=== PATIENT | male | born 1970 | race Caucasian/White ===

== ENCOUNTER 2018-01-03 10:03 | Emergency (ER) | payer BC ==
[2018-01-03] MEDS ORDERED: Sodium Chloride 0.9% 1000 ML 1,000 ML ONE (11:13)
[2018-01-03] MEDS ORDERED: Sodium Chloride 0.9% 1000 ML 1,000 ML IV SCH (11:15)
--- NOTE | 2018-01-03 11:18 | ERPHSYRPT ---
- History of Present Illness Time Seen by Provider: 01/03/18 10:20 Historian: patient Exam Limitations: clinical condition Patient Subjective Stated Complaint: pt to er c/o bradycardia, pt has hx of mitral valve but no other cardiac history he is aware of, has also c/o abdominal pain right side radiating to flank, denies urinary symptoms, this am awoke with numbness to right side of his face, sees Halle Chavez GRAPHICS MANAGER for issues, has CT scheduled tomorrow but felt it could nto wait Triage Nursing Assessment: pt to er per self, ambulates to room with no noted difficulties, denies chest pain, denies palpitations, has new onset facial numbness this am, denies visual changes, Physician History: PATIENT HAS A HISTORY OF IRREGULAR HEART RATE, COMPLAINS OF LEFT SIDED ABDOMINAL PAIN X 2 MONTHS WITH OCCASIONAL CONSTIPATION, DIARRHEA AND RADIATION OF PAIN TO LEFT TESTICLE. REFERRED TO EMERGENCY ROOM FROM LAB DUE TO LOW PULSE RATE. PATIENT DENIES CHEST PAIN, DYSPNEA, PALPITATIONS, DIZZINESS, FEVER , NAUSEA OR EMESIS. Timing/Duration: other (MONTHS) Activities at Onset: none Quality: cramping, sharpness Abdominal Pain Onset Location: LLQ Pain Radiation: flank (AND LEFT TESTICLE) Severity of Pain-Max: moderate Severity of Pain-Current: moderate Modifying Factors: Improves With: nothing Associated Symptoms: nausea, testicular pain, other (CONSTIPATION AND DIARRHEA) Previous symptoms: same symptoms as today Allergies/Adverse Reactions: No Known Drug Allergies Allergy (Unverified 01/03/18 10:22) Hx Tetanus, Diphtheria Vaccination/Date Given: No Hx Influenza Vaccination/Date Given: No - Review of Systems Constitutional: No Fever, No Chills Eyes: No Symptoms Ears, Nose, & Throat: No Symptoms Respiratory: No Symptoms, No Cough, No Dyspnea Cardiac: No Symptoms, No Chest Pain, No Edema, No Syncope Abdominal/Gastrointestinal: Abdominal Pain, No Nausea, No Vomiting, No Diarrhea Genitourinary Symptoms: Other (RADIATION OF PAIN TO TESTICLE), No Dysuria Musculoskeletal: No Back Pain, No Neck Pain Skin: No Rash Neurological: No Dizziness, No Focal Weakness, No Sensory Changes Psychological: No Symptoms Endocrine: No Symptoms All Other Systems: Reviewed and Negative - Past Medical History Pertinent Past Medical History: Yes Cardiac History: Other - Past Surgical History Past Surgical History: No - Social History Smoking Status: Never smoker Exposure to second hand smoke: No Drug Use: none Patient Lives Alone: No - Nursing Vital Signs Nursing Vital Signs: Initial Vital Signs Pulse Rate 94 H 01/03/18 10:12 Respiratory Rate 20 01/03/18 10:12 Blood Pressure 150/103 01/03/18 10:12 O2 Sat by Pulse Oximetry 98 01/03/18 10:12 Pain Scale Pain Intensity 2 - Physical Exam General Appearance: no apparent distress, alert Eye Exam: PERRL/EOMI, eyes nml inspection Ears, Nose, Throat Exam: normal ENT inspection, pharynx normal, moist mucous membranes Neck Exam: normal inspection, non-tender, supple, full range of motion Respiratory Exam: normal breath sounds, lungs clear, No respiratory distress Cardiovascular Exam: regular rate/rhythm, normal heart sounds Gastrointestinal/Abdomen Exam: soft, normal bowel sounds, tenderness (LLQ TENDERNESS, NO GUARDING OR REBOUND TENDERNESS), No mass Male Genitalia Exam: normal genitalia Back Exam: normal inspection, normal range of motion, No CVA tenderness, No vertebral tenderness Extremity Exam: normal inspection, normal range of motion, pelvis stable Neurologic Exam: alert, oriented x 3, cooperative, normal mood/affect, nml cerebellar function, sensation nml, No motor deficits Skin Exam: normal color, warm, dry SpO2 Interpretation: normal SpO2: 98 Oxygen Delivery: Room Air - Course EKG Interpreted by Me: RATE, Sinus Rhythm, NORMAL AXIS, Other (OCCASIONAL PVC) - Radiology Exams Chest X-ray Interpretation: Discussed w/ radiologist, No Infiltrates - CT Exams Abdomen/Pelvis CT Interpretation: Discussed w/radiologist (NO ACUTE PROCESS IS SEEN, NO BOWEL OBSTRUCTION, FREE AIR, BOWEL WALL THICKENING, NO RENAL/URETERAL CALCULLI. HYDRONEPHROSIS OR EVIDENCE OF APPENDICITIS) Ordered Tests: Active Orders 24 hr Category Date Time Status Clean Catch Urine Specimen STAT Care 01/03/18 11:09 Active IV Insertion STAT Care 01/03/18 11:09 Active ABDOMEN AND PELVIS W CONTRAST [CT] Stat Exams 01/03/18 11:09 Completed CHEST 1 VIEW (PORTABLE) Stat Exams 01/03/18 11:09 Completed AMYLASE Stat Lab 01/03/18 11:10 Completed CBC W DIFF Stat Lab 01/03/18 11:10 Completed CMP Stat Lab 01/03/18 11:10 Completed LIPASE Stat Lab 01/03/18 11:10 Completed TROPONIN Q3H Lab 01/03/18 11:10 Completed TROPONIN Q3H Lab 01/03/18 14:15 Ordered TROPONIN Q3H Lab 01/03/18 17:15 Ordered TROPONIN Q3H Lab 01/03/18 20:15 Ordered TROPONIN Q3H Lab 01/03/18 23:15 Ordered UA W/RFX UR CULTURE Stat Lab 01/03/18 12:30 Completed Medication Summary Generic Name Dose Route Start Last Admin Trade Name Freq PRN Reason Stop Dose Admin Sodium Chloride 1,000 mls @ 500 mls/hr 01/03/18 11:15 01/03/18 11:16 Sodium Chloride 0.9% 1000 Ml IV 02/02/18 11:14 500 mls/hr .Q2H RICHARD Administration Lab/Rad Data: Laboratory Result Diagrams 01/03/18 11:10 01/03/18 11:10 Laboratory Results 01/03/18 01/03/18 01/03/18 Range/Units 12:30 11:10 11:10 WBC (4.0-10.5) K/mm3 RBC (4.1-5.6) M/mm3 Hgb (12.5-18.0) gm/dl Hct (42-50) % MCV (78-100) fl MCH (26-32) pg MCHC (32-36) g/dl RDW (11.5-14.0) % Plt Count (150-450) K/mm3 MPV (6-9.5) fl Gran % (36.0-66.0) % Eos # (Auto) (0-0.5) Absolute Lymphs (auto) (1.0-4.6) Absolute Monos (auto) (0.0-1.3) Lymphocytes % (24.0-44.0) % Monocytes % (0.0-12.0) % Eosinophils % (0.00-5.0) % Basophils % (0.0-0.4) % Absolute Granulocytes (1.4-6.9) Basophils # (0-0.4) Sodium 139 (137-145) mmol/L Potassium 4.1 (3.5-5.1) mmol/L Chloride 104 (98-107) mmol/L Carbon Dioxide 24 (22-30) mmol/L Anion Gap 14.9 (5-15) MEQ/L BUN 9 (9-20) mg/dL Creatinine 0.85 (0.66-1.25) mg/dL Estimated GFR > 60.0 ML/MIN Glucose 110 H (74-106) mg/dL Calcium 9.5 (8.4-10.2) mg/dL Total Bilirubin 0.70 (0.2-1.3) mg/dL AST 28 (17-59) U/L ALT 25 (0-50) U/L Alkaline Phosphatase 86 (38-126) U/L Troponin I < 0.012 (0.000-0.034) ng/mL Serum Total Protein 8.1 (6.3-8.2) g/dL Albumin 4.9 (3.5-5.0) g/dL Amylase 62 (30-110) U/L Lipase 74 (23-300) U/L Ur Collection Type CLEAN CATCH Urine Color COLORLESS (YELLOW) Urine Appearance CLEAR (CLEAR) Urine pH 5.0 (5-6) Ur Specific [place] 1.005 (1.005-1.025) Urine Protein NEGATIVE (Negative) Urine Ketones NEGATIVE (NEGATIVE) Urine Blood NEGATIVE (0-5) Fidencio/ul Urine Nitrite NEGATIVE (NEGATIVE) Urine Bilirubin NEGATIVE (NEGATIVE) Urine Urobilinogen NORMAL (0-1) mg/dL Ur Leukocyte Esterase NEGATIVE (NEGATIVE) Urine Culture Reflexed NO (NO) Urine Glucose NEGATIVE (NEGATIVE) mg/dL Specimen Received 01-03-18 1230 01/03/18 Range/Units 11:10 WBC 4.7 (4.0-10.5) K/mm3 RBC 5.16 (4.1-5.6) M/mm3 Hgb 16.1 (12.5-18.0) gm/dl Hct 47.0 (42-50) % MCV 91.1 (78-100) fl MCH 31.2 (26-32) pg MCHC 34.3 (32-36) g/dl RDW 13.0 (11.5-14.0) % Plt Count 241 (150-450) K/mm3 MPV 11.2 H (6-9.5) fl Gran % 56.3 (36.0-66.0) % Eos # (Auto) 0.18 (0-0.5) Absolute Lymphs (auto) 1.39 (1.0-4.6) Absolute Monos (auto) 0.45 (0.0-1.3) Lymphocytes % 29.7 (24.0-44.0) % Monocytes % 9.6 (0.0-12.0) % Eosinophils % 3.8 (0.00-5.0) % Basophils % 0.6 (0.0-0.4) % Absolute Granulocytes 2.63 (1.4-6.9) Basophils # 0.03 (0-0.4) Sodium (137-145) mmol/L Potassium (3.5-5.1) mmol/L Chloride (98-107) mmol/L Carbon Dioxide (22-30) mmol/L Anion Gap (5-15) MEQ/L BUN (9-20) mg/dL Creatinine (0.66-1.25) mg/dL Estimated GFR ML/MIN Glucose (74-106) mg/dL Calcium (8.4-10.2) mg/dL Total Bilirubin (0.2-1.3) mg/dL AST (17-59) U/L ALT (0-50) U/L Alkaline Phosphatase (38-126) U/L Troponin I (0.000-0.034) ng/mL Serum Total Protein (6.3-8.2) g/dL Albumin (3.5-5.0) g/dL Amylase (30-110) U/L Lipase (23-300) U/L Ur Collection Type Urine Color (YELLOW) Urine Appearance (CLEAR) Urine pH (5-6) Ur Specific [place] (1.005-1.025) Urine Protein (Negative) Urine Ketones (NEGATIVE) Urine Blood (0-5) Fidencio/ul Urine Nitrite (NEGATIVE) Urine Bilirubin (NEGATIVE) Urine Urobilinogen (0-1) mg/dL Ur Leukocyte Esterase (NEGATIVE) Urine Culture Reflexed (NO) Urine Glucose (NEGATIVE) mg/dL Specimen Received - Progress Progress: unchanged Progress Note: 01/03/18 12:10 IV NORMAL SALINE 500ML/HR PATIENT REFUSED ANALGESICS, ALL LAB TESTS REVIEWED AND ARE NORMAL , ABDOMINAL PELVIC CT WITH INTRAVENOUS CONTRAST NEGATIVE 01/03/18 13:42 Counseled pt/family regarding: lab results, diagnosis, need for follow-up, rad results - Departure Time of Disposition: 13:58 Departure Disposition: Home Clinical Impression: CHRONIC ABDOMINAL PAIN, Arrhythmia Condition: Stable Critical Care Time: No Referrals: HALLE CHAVEZ [Primary Care Provider] - Additional Instructions: CONSULT YOUR PRIMARY CARE PROVIDER FOR FOLLOWUP, REVIEW OF EMERGENCY ROOM VISIT , LABS AND CT SCAN. CONSULT YOUR [employer]OD [employer]ODUCTS SALES REPRESENTATIVE FOR RE-EVALUATION OF ARRHYTHMIA.
[2018-01-03 11:44] LABS: BASOPHIL % 0.6 % (0.0-0.4); Basophil (Absolute #) 0.03 (0-0.4); Eosinophil % 3.8 % (0.00-5.0); Eosinophil (Absolute #) 0.18 (0-0.5); Granulocyte Absolute (ANC) 2.63 (1.4-6.9); Granulocytes % 56.3 % (36.0-66.0); Hemoglobin 16.1 gm/dl (12.5-18.0); Lymphocyte (Absolute #) 1.39 (1.0-4.6); Lymphocytes % 29.7 % (24.0-44.0); Mean Cell Volume 91.1 fl (78-100); Mean Corpuscular Hemoglobin 31.2 pg (26-32); Mean Corpuscular Hgb Concent. 34.3 g/dl (32-36); Mean Platelet Volume 11.2 fl (6-9.5); Monocyte (Absolute #) 0.45 (0.0-1.3); Monocytes % 9.6 % (0.0-12.0); Platelet Count 241 K/mm3 (150-450); Red Blood Count 5.16 M/mm3 (4.1-5.6); White Blood Count 4.7 K/mm3 (4.0-10.5)
[2018-01-03 11:50] LABS: ALBUMIN 4.9 g/dL (3.5-5.0); ALKALINE PHOSPHATASE 86 U/L (38-126); AMYLASE 62 U/L (30-110); ANION GAP 14.9 MEQ/L (5-15); BLOOD UREA NITROGEN 9 mg/dL (9-20); CHLORIDE 104 mmol/L (98-107); Calcium 9.5 mg/dL (8.4-10.2); Carbon Dioxide 24 mmol/L (22-30); Creatinine 1 0.85 mg/dL (0.66-1.25); Glucose 110 mg/dL (74-106); LIPASE 74 U/L (23-300); Potassium 4.1 mmol/L (3.5-5.1); SGOT/AST 28 U/L (17-59); SGPT/ALT 25 U/L (0-50); SODIUM 139 mmol/L (137-145); Total Protein 8.1 g/dL (6.3-8.2)
--- NOTE | 2018-01-03 12:00 | XRAY ---
Exam: AP upright portable chest film from 01/03/2018. Comparison: None. Indication: Dyspnea and dizziness. Findings: The transverse heart size appears normal. The gloria and mediastinal structures appear unremarkable. There is minimal elevation of the right hemidiaphragm which may be due to eventration. No air space infiltrates, vascular congestion, pneumothorax, or pleural fluid is seen. No acute osseous process is seen. EKG leads are noted in place. Impression: 1. No acute cardiopulmonary disease is seen. Incidental note of minimal elevation/eventration of the right hemidiaphragm is seen.
--- NOTE | 2018-01-03 12:35 | XRAY ---
Exam: CT of the abdomen and pelvis with IV contrast from 01/03/2018. CTDI: 21.37 Comparison: Gallbladder ultrasound from 12/28/2017. Indication: 47-year-old male with left lower abdominal/pelvic pain for 2-3 months/left flank pain;. Technique: Post-IV contrast axial images were obtained through the abdomen and pelvis during and following automated injection of 80 ML's of Isovue 370 contrast material. No oral contrast was given. Reconstructed coronal and sagittal images were created and reviewed. Also, some delay axial images were obtained through the kidneys, ureters, and urinary bladder. Findings: The lung bases appear essentially clear, except for some minimal curvilinear scarring/atelectasis at the anterior lateral left lung base. No posterior pleural fluid is seen. The heart size is normal. There is mild focal eventration of the anterior and midportion of the right hemidiaphragm. The liver and spleen appear unremarkable. The gallbladder is partially distended and reveals no dense calcifications within it. No biliary duct distention is seen. The pancreas and adrenal glands appear unremarkable. The kidneys are of normal size and function well on the delay images. No solid renal mass, cyst, hydronephrosis, or other focal renal abnormality is seen. I see no evidence of stone within either visualized ureter or the urinary bladder. The abdominal aorta appears of normal diameter (i.e. no abdominal aortic aneurysm). No abnormal retroperitoneal lymphadenopathy is seen. There is no evidence of free intraperitoneal air. Minimal herniation of intraperitoneal fat into the subcutaneous fat at the level the umbilicus is seen. No bowel containing ventral hernia is seen. The appendix is well seen within the right lower quadrant and appears unremarkable. No bowel distention or abnormal bowel wall thickening is seen. The distal two thirds of the transverse colon and the descending colon appear relatively collapsed. No significant diverticulosis or diverticulitis is seen. There is no free intraperitoneal fluid within the pelvis. The seminal vesicles and prostate gland appear unremarkable. Some small calcified phleboliths are seen within the lower pelvis bilaterally. The urinary bladder appears unremarkable. No enlarged pelvic lymph nodes are seen. The skeleton reveals bilateral spondylolysis at L5 without evidence of spondylolisthesis. There is slight loss of the anterior vertebral body height of T12 which I believe is old. Mild posterior vertebral endplate spurring is seen at both L-1L2 and L2-L3. There is also minimal anterior vertebral endplate spurring within the lumbar spine. Impression: 1. No acute process is seen within the abdomen or pelvis. The distal two thirds of the transverse colon and the descending colon appear collapsed. No definite findings to suggest colitis or diverticulosis/diverticulitis is seen. 2. No renal/ureteral calculi, hydronephrosis, or other evidence of obstructive uropathy is seen. 3. No evidence of appendicitis is seen. 4. 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 I also note mild posterior vertebral endplate spurring at L1-L2 and L2-L3.
[2018-01-03 13:35] LABS: Appearance CLEAR (CLEAR); Bilirubin NEGATIVE (NEGATIVE); Blood NEGATIVE Ery/ul (0-5); Glucose NEGATIVE (NEGATIVE); Ketones NEGATIVE (NEGATIVE); Leukocyte Esterase NEGATIVE (NEGATIVE); Nitrite NEGATIVE (NEGATIVE); Protein,Urine Dip NEGATIVE (Negative); Specific Gravity 1.005 (1.005-1.025); Urobilinogen NORMAL mg/dL (0-1)
[2018-01-03 14:14] VITALS: BP 130/98; PULSE 76; O2SAT 95
== END 2018-01-03 14:14 | disposition home or self-care (01) ==
LOC: ED 10:03
DX: R10.32 Left lower quadrant pain (principal); N50.812 Left testicular pain; I49.9 Cardiac arrhythmia, unspecified; K59.00 Constipation, unspecified; R19.7 Diarrhea, unspecified
CPT/HCPCS: 36000; 36415; 71045; 74177; 80053; 81002; 82150; 83690; 84484; 85025; 96360; 96361; 99284